=== PATIENT | female | born 1925 | race Caucasian/White ===

== ENCOUNTER 2016-12-13 13:00 | Inpatient (IN) ==
--- NOTE | 2016-12-13 14:02 | XRay Report ---
History is preop respiratory screening Comparison 05/31/2016 Mediastinal and hilar contours are unchanged Minimal patchy and stranding opacities at the left lung base present much of which is felt to be scarring in the confluence of shadows. No confluent right lung infiltrates are seen Chronic rotator cuff tears and degenerative changes in both shoulders present Impression: Minimal left basilar scarring without confluent infiltrates seen PROCEDURE INTERPRETED AT [facility] DEPARTMENT OF RADIOLOGY Final Report Signed by: Dr. Bushra Martinez
--- NOTE | 2016-12-13 14:05 | XRay Report ---
History is fall with pelvic and right hip injury and pain AP pelvis and 2 additional views right hip obtained There is a right femoral neck fracture with mild impaction at the fracture site There is demineralization with mild degenerative changes in both hips Large left pelvic phleboliths present Impression: 1. Right femoral neck fracture 2. Mild demineralization and degenerative changes PROCEDURE INTERPRETED AT [facility] DEPARTMENT OF RADIOLOGY Final Report Signed by: Dr. Bushra Martinez
--- NOTE | 2016-12-13 14:29 | EKG Report ---
Stationary ECG Study [facility] ER Test Date: 12/13/2016 2:27:44 PM Pat Name: LAMAR PERSAUD Department: Room: Gender: F Division Leader: : [id number] Requested by: Efren Luo Order Number: [id number] Reading MD: PIOTR DO Intervals [place] Rate: 77 P: 82 RI: 158 QRS: 79 QRSD: 102 T: 61 QT: 363 QTc: 395 Interpretive Statements SINUS RHYTHM INCOMPLETE RIGHT BUNDLE BRANCH BLOCK Electronically Signed On 12-13-16 16:37:49 CDT by PIOTR DO [email or web address]
[2016-12-13 14:37] LABS: Basophils % 0.4 % (0.0-0.8); Eosinophils # 0.3 10*3/uL (0.0-0.87); Eosinophils % 3.7 % (0.00-10.9); Hematocrit 34.8 VOL% (35.7-47.0); Hemoglobin 12.1 GM/DL (12.0-16.0); Immature Granulocytes % 0.9 %; Immature Granulocytes Absolute 0.07 #; Lymphocytes # 1.4 10*3/uL (1.4-4.0); Lymphocytes % 17.6 % (21.3-54.2); Mean Corpuscular HGB Conc 34.8 GM/DL (32-36); Mean Corpuscular Hemoglobin 29 PG (27-34); Mean Corpuscular Volume 83.5 FL (87-102); Mean Platelet Volume 9.5 FL (9.6-12.0); Monocytes # 0.6 10*3/uL (0.11-0.8); Monocytes % 7.8 % (1.7-12.7); Neutrophils # 5.7 10*3/uL (1.4-7.4); Neutrophils % 69.6 % (38.7-73.9); Platelet Count 251 T/CUMM (130-400); Red Blood Count 4.17 MC/CUMM (3.8-5.5); Red Cell Distribution Width 12.9 % (9.3-17.3); White Blood Count 8.2 T/CUMM (4-12)
--- NOTE | 2016-12-13 14:40 | Emergency Department Note ---
Norris Ghotra Manpreet, am scribing for, and in the presence of, Efren Narvaez MD 13:53. Brice Ghotra Phillip K, MD, personally performed the services described in this documentation, ascribed by Balwinder Pisano in my presence, and it is both accurate and complete [id number] . Arrival - Arrival Chief Complaint: Fall Stated Complaint: fall ED Nursing Triage Note: Brought in per EMS from [facility] s/p fall. Reports tripped over wheel of walker and fell. c/o right hip pain. +pedal pulse. +motor sensory. Mode of Arrival: Stretcher Limitations: No Limitations Source: Patient - History of Present Illness HPI Narrative: Pt is a 89 y/o female who presents to the ED after she was walking into her apartment and getting her foot caught on her walker that resulted in the fall. Pt c/o pain to her right hip but is still able to move it. Pt denies any LOC, wrist pain, or other injuries. No other pains/complaints reported to the ED. Onset (ago): hour(s) Consistency: constant Severity: moderate Severity scale (1-10): 3 Date of Last Menstrual Period: hyst Allergies/Adverse Reactions: Allergies Allergy/AdvReac Type Severity Reaction Status Date / Time cimetidine [From Tagamet] Allergy ANAPHYLAXIS Verified 12/13/16 13:08 Penicillins Allergy ANAPHYLAXIS Verified 12/13/16 13:08 Sulfa (Sulfonamide Allergy RASH Verified 12/13/16 13:08 Antibiotics) Home Medications: Home Medications Medication Instructions Recorded Confirmed Type Aspirin [Ecotrin] 81 mg PO DAILY 02/04/16 12/13/16 History Meclizine [Antivert] 25 mg PO DAILY 02/04/16 12/13/16 History Review of System - Review of System 12 point system: reviewed and no additional remarkable complaints except as stated - Review of System Constitutional: Absent: chills, diaphoresis, fever Respiratory: Absent: cough, respiratory distress, wheezing Cardiovascular: Absent: dyspnea on exertion Gastrointestinal: Absent: abdominal pain, nausea, vomiting Genitourinary female: Absent: dysuria Musculoskeletal: Present: leg pain (Right hip pain). Absent: arm pain, back pain, lower back pain, neck pain, upper back pain Neurological: Absent: headache, weakness, numbness, paresthesias Medical,Surgical,& Family Hx - Medical History Cardio: History of: Hypertension Neurology: History of: Vertigo Rheumatology: History of;: Rheumatoid Arthritis - Surgical History Cardiac Surgeries: Sugical HX of: Cardiac Catheterization (STENT) - Social History Smoking Status: Former smoker Frequency of Alcohol Use: None Type of Drug Use: None Exam Vital Signs: Vital Signs Temperature 98.3 F 12/13/16 13:34 Pulse Rate 80 12/13/16 13:34 Respiratory Rate 16 12/13/16 13:34 Blood Pressure 178/64 12/13/16 13:34 O2 Sat by Pulse Oximetry 98 12/13/16 13:00 - General General appearance: alert, in no apparent distress - Head Head exam: Present: atraumatic, normocephalic, normal inspection - Eye Eye exam: Present: normal appearance, PERRL, EOMI - ENT ENT exam: Present: normal exam, normal oropharynx, mucous membranes moist, TM's normal bilaterally - Neck Neck exam: Present: normal inspection, full ROM, trachea midline. Absent: tenderness, thyromegaly - Chest Chest inspection: Present: normal inspection, symmetric chest wall rise. Absent : tenderness - Respiratory Respiratory exam: Present: normal lung sounds bilaterally. Absent: accessory muscle use, rales, respiratory distress, wheezes - Cardiovascular Cardiovascular exam: Present: regular rate, normal rhythm, normal heart sounds. Absent: murmur, rubs, gallop, clicks - Abdominal Exam Abdominal exam: Present: soft, normal bowel sounds. Absent: distention, tenderness, guarding, rebound - Extremities Exam Extremities exam: Present: tenderness (Tenderness on left hip but no shortening or external rotation ). Absent: normal inspection - Back Exam Back exam: Present: normal inspection, full ROM. Absent: tenderness - Neurological Exam Neurological exam: Present: alert, oriented X3, CN II-XII intact, reflexes normal - Psychiatric Psychiatric exam: Present: normal affect, normal mood - Skin Skin exam: Present: warm, dry, intact, normal color. Absent: pallor Results - Labs CBC & BMP: 12/13/16 14:22 - EKG EKG results: sinus rhythm (Incomplete right bundle branch block) - Diagnostic Findings Procedure: Chest x-ray: report reviewed by me ("Chest X-ray: Minimal left basilar scarring without confluent infiltrates seen."), X-ray: report reviewed by me ("Hip X-ray: 1. Right femoral neck fracture. 2. Mild demineralization and degernative changes.") Disposition Clinical Impression: Fracture of femoral neck, right Case discussed with: patient, patient's family Disposition: Still a Patient Condition: Stable Additional Instructions: Admit to the hospitalist and consult orthopedics.
[2016-12-13 14:53] LABS: PT Patient Result 10.4 SECS
--- NOTE | 2016-12-13 14:55 | Hospitalist History & Physical ---
Addendum entered and electronically signed by Celia Manriquez NP 12/13/16 15:25: 12 point review of systems completed and as per HPI. Addendum entered and electronically signed by Celia Manriquez NP 12/13/16 15:12: Deferred DVT prophylaxis to Orthopedics Original Note: Assessment and Plan - Time spent with patient Time spent with patient: Greater than 30 minutes (1) Fracture of femoral neck, right Status: Acute Assessment and plan: Admit to Surgical Floor. Consult Orthopedics. Start IV fluids. Hurd catheter placement. Will repeat a.m. labs. Will discuss with Dr David for further recommendations. Current Visit: Yes History of Present Illness Chief complaint: fall/tripped over walker; right femoral neck fracture History of present illness: Ms. Ramos is a 89 year old white female with PMHx: hypertension, Vertigo, Rheumatoid arthritis; presented to the ED Via EMS from [facility] after tripping over wheel of walker. She complains of right hip pain. She denies, shortness of breath, dizziness, chest pain, LOC or pain in wrist, arm, shoulder. IN ED: LABS: H&H 12.1 & 34.8; Plt 251; Hip Xray right: right femoral neck fracture; mild demineralization and degenerative changes. CXR: minimal left basilar scarring without confluent infiltrates seen. Patient denies alcohol use. She quit smoking in 2004 after 54 years of smoking. 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 After discussion with Dr Narvaez in the ED and Dr David with Hospitalist Medicine, it was agreed to admit patient further evaluation and treatment. Home medications to be reviewed and reconciliation to follow. Home Medications Medication Instructions Recorded Confirmed Type Aspirin [Ecotrin] 81 mg PO DAILY 02/04/16 12/13/16 History Meclizine [Antivert] 25 mg PO DAILY 02/04/16 12/13/16 History Allergies Allergy/AdvReac Type Severity Reaction Status Date / Time cimetidine [From Tagamet] Allergy ANAPHYLAXIS Verified 12/13/16 13:08 Penicillins Allergy ANAPHYLAXIS Verified 12/13/16 13:08 Sulfa (Sulfonamide Allergy RASH Verified 12/13/16 13:08 Antibiotics) Medical,Surgical,& Family Hx - Medical History Cardio: History of: Hypertension Neurology: History of: Vertigo Rheumatology: History of;: Rheumatoid Arthritis - Surgical History Cardiac Surgeries: Sugical HX of: Cardiac Catheterization (STENT) Abdominal Surgeries: Surgical HX of: Appendectomy (when she was young) - Social History Smoking Status: Former smoker (quit in 2004 after 54 years ago) Frequency of Alcohol Use: None Type of Drug Use: None Lives With:: [facility] Functional capacity: uses cane/walker Review of systems: ROS completed and pertinent positives and negatives in the HPI. Exam - Constitutional Vitals: Period Temp Pulse Resp BP Sys/Mora Pulse Ox Last 24 Hr 98.3 F-98.3 F 80-80 16-16 178-178/64-64 98 General appearance: normal weight - Head Head exam: Present: normal inspection - Eye Eye exam: Present: EOMI Pupils: Present: SHAWN - Neck Neck exam: Present: normal inspection. Absent: thyromegaly - Respiratory Respiratory exam: Present: clear to auscultation bilaterally. Absent: rhonchi, stridor, wheezes - Cardiovascular Cardiovascular exam: Present: regular rate and rhythm - GI/Abdominal GI/Abdominal exam: Present: normal bowel sounds, soft. Absent: tenderness, rebound - Extremities Exam Extremities exam: Present: other (No shortening noted; no rotation noted; easily palpable pedal pulses bilaterally ). Absent: edema - Neurological Exam Neurological exam: Present: alert, oriented X3 - Psychiatric Psychiatric exam: Present: normal affect, normal mood. Absent: agitated, anxious - Skin Skin exam: Present: normal color, warm, dry Results - Labs CBC & BMP: 12/13/16 14:22 Lab Results: I have reviewed the past 24 hour labs - Diagnostic Findings Procedure: X-ray: report reviewed by me (Right Hip: Right femoral neck fracture , mild demineralization and degenerative changes)
[2016-12-13 15:03] LABS: Calcium 9.2 MG/DL (8.5-10.1); Potassium 4.6 MMOL/L (3.5-5.1)
[2016-12-13] MEDS ORDERED: ACETAMINOPHEN 325 MG TABLET PO PRN (15:04)
[2016-12-13] MEDS ORDERED: ONDANSETRON 4 MG/2 ML VIAL IV PRN (15:04)
[2016-12-13] MEDS ORDERED: MORPHINE 2 MG/1 ML SYRINGE IV PRN ×2 (15:04→17:41)
[2016-12-13] MEDS ORDERED: SODIUM CHLORIDE 0.9% 1,000 ML IV SCH (15:30)
--- NOTE | 2016-12-13 18:23 | Orthopedic Consult Note ---
History of Present Illness Chief complaint: Right hip pain History of present illness: Ms. Ramos is a 89 year old female who fell when coming back from getting her hair done. She tripped over the wheel of her walker. The patient lives alone at [facility]. Her daughter is present today. She denies any other injury elsewhere and denies any antecedent pain from the right hip. She has been using a walker since May of this year. She had a series of 4 falls and head injury. She denies any numbness or tingling. Home Medications Medication Instructions Recorded Confirmed Type Aspirin [Ecotrin] 81 mg PO DAILY 02/04/16 12/13/16 History Meclizine [Antivert] 25 mg PO DAILY 02/04/16 12/13/16 History Allergies Allergy/AdvReac Type Severity Reaction Status Date / Time cimetidine [From Tagamet] Allergy ANAPHYLAXIS Verified 12/13/16 13:08 Penicillins Allergy ANAPHYLAXIS Verified 12/13/16 13:08 Sulfa (Sulfonamide Allergy RASH Verified 12/13/16 13:08 Antibiotics) 12 point system: reviewed and no additional remarkable complaints except as stated Medical,Surgical,& Family Hx - Medical History Cardio: History of: Hypertension Neurology: History of: Vertigo Rheumatology: History of;: Rheumatoid Arthritis - Surgical History Cardiac Surgeries: Sugical HX of: Cardiac Catheterization (STENT) Abdominal Surgeries: Surgical HX of: Appendectomy (when she was young) - Social History Smoking Status: Former smoker Frequency of Alcohol Use: None Type of Drug Use: None Exam - Constitutional Vitals: Period Temp Pulse Resp BP Sys/Mora Pulse Ox Last 24 Hr 98.3 F-98.3 F 76-80 16-20 113-182/51-89 95-98 Alert and oriented. She is complaining of pain from her right hip. Exam shows spine, bilateral upper extremities and left lower extremity are nontender without acute deformity. Right lower extremity shows no gross deformity. Skin, sensation motors pulses are intact to her foot and ankle. She has severe pain with gentle motion of her hip. Radiographs pelvis and right hip shows that she has a valgus impacted femoral neck fracture with significant apex anterior angulation. Impression: Right valgus impacted femoral neck fracture with significant apex anterior angulation Plan: I discussed at length with the patient and her family regarding the nature of her hip fracture. I have advised a hemiarthroplasty over pinning given the significant angulation on her lateral x-ray. I discussed the risks and benefits and all questions were answered. Anticipate discharge to [facility]. Results - Labs CBC & BMP: 12/13/16 14:22 12/13/16 14:22 Assessment and Plan (1) Fracture of femoral neck, right Status: Acute Current Visit: Yes Qualifiers: Encounter type: initial encounter Fracture type: closed Qualified Code(s) : S72.001A - Fracture of unspecified part of neck of right femur, initial encounter for closed fracture
[2016-12-13] MEDS: MECLIZINE 25 MG TABLET PO SCH (21:34)
[2016-12-13] MEDS: DOCUSATE SODIUM 100 MG CAPSULE PO SCH (21:34)
[2016-12-13] MEDS: SODIUM CHLORIDE 0.45% 1,000 ML IV SCH ×2 (21:35→21:39)
[2016-12-14] MEDS ORDERED: CLINDAMYCIN INJ 900 MG in PREMIX 1 EACH IV ONE (06:00)
[2016-12-14] MEDS ORDERED: VANCOMYCIN INJ 1,000 MG in SODIUM CHLORIDE 0.9% 250 ML IV ONE (06:00)
[2016-12-14] MEDS: SODIUM CHLORIDE 0.45% 1,000 ML IV SCH (06:16)
--- NOTE | 2016-12-14 07:00 | Orthopedic Progress Note ---
Assessment and Plan (1) Fracture of femoral neck, right Status: Acute Current Visit: Yes Qualifiers: Encounter type: initial encounter Fracture type: closed Qualified Code(s) : S72.001A - Fracture of unspecified part of neck of right femur, initial encounter for closed fracture Orthopedics - Subjective Interval history: Ms. Ramos was seen this morning in the proper room. She had a relatively good night and was able to sleep. Exam right lower extremity is unchanged. Impression right femoral neck fracture Plan: We will plan proceeding with a right hip hemiarthroplasty this morning. All questions were answered. Exam - Constitutional Vitals: Period Temp Pulse Resp BP Sys/Mora Pulse Ox Last 24 Hr 98.0 F-98.4 F 75-90 16-20 113-182/51-89 90-98 Results - Labs CBC & BMP: 12/13/16 14:22 12/13/16 14:22
[2016-12-14] MEDS ORDERED: MAGNESIUM HYDROXIDE SUSP 30 ML UDCUP PO PRN (07:55)
[2016-12-14] MEDS ORDERED: TRANEXAMIC ACID 1,000 MG/10 ML VIAL IV ONE (08:05)
[2016-12-14] MEDS ORDERED: MECLIZINE 25 MG TABLET PO SCH (09:00)
[2016-12-14] MEDS ORDERED: ASPIRIN EC 81 MG TABLET PO SCH (09:00)
--- NOTE | 2016-12-14 09:19 | Anesthesia Post-Op ---
Anesthesia Post OP - Post Ansesthetic Evaluation Patient seen in post op: Yes Resp: within normal limits CV: within normal limits Mental: within normal limits Temp: within normal limits [id number]: within normal limits Nausea and Vomiting: within normal limits Pain: within normal limits
[2016-12-14] MEDS ORDERED: SEVOFLURANE 1 UNIT/15 MINUTE INH ONE (09:22)
[2016-12-14] MEDS ORDERED: fentaNYL 100 MCG/2 ML VIAL ONE (09:22)
[2016-12-14] MEDS ORDERED: LACTATED RINGERS 1,000 ML IV ONE (09:22)
[2016-12-14] MEDS ORDERED: ACETAMINOPHEN 1,000 MG/100 ML VIAL IV ONE (09:22)
--- NOTE | 2016-12-14 09:38 | Operative Note ---
Date of procedure: 12/14/16 Procedure: DIAGNOSIS: Right displaced femoral neck fracture PROCEDURE: Right cemented hip hemiarthroplasty (CPT # 58380) SURGEON: Ramon ANESTHESIA: Spinal PROCEDURE and FINDINGS: After adequate anesthesia was induced, her operative hip was prepped and draped in usual sterile sterile fashion in the lateral decubitus position. Posterior lateral approach was made. Skin and subcutaneous tissue and deep fascia was incised. The gluteus misti muscle belly was split in line with its fibers. Piriformis, capsule and external rotators were taken down in a single layer for future repair. Templated femoral neck cut was made. Femoral head was removed from the acetabulum. Acetabulum was sized to 47 mm. Femur was prepared with the box osteotome, canal finder and sequential broaches to size 13. Components were trialed. Femoral stem was implanted with modern cementing techniques. Palacos cement, a distal centralizer and cement plug were used. Excess cement was removed. A size 12 LD/ FX Versys stem was used. The femoral head was re-trialed and the final head was selected. A 47 mm endohead with a 28 +0 neck length was used. Capsule and external rotators were repaired to the greater trochanter with #5 Tycron. Fascia was repaired with 0 Vicryl [id number] sutures. Deep subcutaneous tissue was closed with a 2-0 Vicryl running suture. Superficial subcutaneous tissues were approximated with interrupted 3-0 Vicryl sutures. Melissa were used to approximate skin. Bacitracin and a sterile dressing were applied. EBL: 20 cc Surgeon / Physician: Herb Navarro Jr. Results - Labs CBC & BMP: 12/13/16 14:22 12/13/16 14:22 Discharge Plan - Discharge Medications No Action Meclizine [Antivert] 25 mg PO DAILY Aspirin [Ecotrin] 81 mg PO DAILY - Follow Up or Referral - Forms/Instructions
[2016-12-14 10:27] LABS: Basophils % 0.2 % (0.0-0.8); Eosinophils # 0.4 10*3/uL (0.0-0.87); Eosinophils % 2.9 % (0.00-10.9); Hematocrit 34.2 VOL% (35.7-47.0); Hemoglobin 11.5 GM/DL (12.0-16.0); Immature Granulocytes % 0.6 %; Immature Granulocytes Absolute 0.08 #; Lymphocytes # 0.9 10*3/uL (1.4-4.0); Lymphocytes % 6.6 % (21.3-54.2); Mean Corpuscular HGB Conc 33.6 GM/DL (32-36); Mean Corpuscular Hemoglobin 29 PG (27-34); Mean Corpuscular Volume 84.9 FL (87-102); Mean Platelet Volume 9.3 FL (9.6-12.0); Monocytes # 0.5 10*3/uL (0.11-0.8); Neutrophils # 11.5 10*3/uL (1.4-7.4); Neutrophils % 85.7 % (38.7-73.9); Platelet Count 207 T/CUMM (130-400); Red Blood Count 4.03 MC/CUMM (3.8-5.5); White Blood Count 13.4 T/CUMM (4-12)
[2016-12-14] MEDS: DOCUSATE SODIUM 100 MG CAPSULE PO SCH ×2 (11:02→20:47)
[2016-12-14] MEDS: PANTOPRAZOLE 40 MG TABLET PO SCH (11:02)
[2016-12-14] MEDS: MECLIZINE 25 MG TABLET PO SCH ×3 (11:02→20:47)
[2016-12-14] MEDS: KETOROLAC 15 MG/1 ML VIAL IV SCH ×3 (11:03→20:47)
[2016-12-14] MEDS: LACTATED RINGERS 1,000 ML IV SCH ×3 (11:03→22:55)
[2016-12-14 11:05] LABS: Calcium 8.5 MG/DL (8.5-10.1); Magnesium 2.4 MG/DL (1.8-2.4); Osmolality,Calculated 271.4 MOS/KG (273-304); Potassium 4.6 MMOL/L (3.5-5.1)
--- NOTE | 2016-12-14 12:03 | XRay Report ---
History is postop right hip surgery There has been right hip replacement with overlying soft tissue jamal and gas present. There is a fairly horizontal configuration of the acetabular component. no discrete fracture lines are identified Impression: Status post right hip replacement PROCEDURE INTERPRETED AT [facility] DEPARTMENT OF RADIOLOGY Final Report Signed by: Dr. Bushra Martinez
[2016-12-14] MEDS: ACETAMINOPHEN 500 MG TABLET PO SCH ×2 (12:13→17:50)
--- NOTE | 2016-12-14 12:46 | Orthopedic Progress Note ---
Assessment and Plan (1) Fracture of femoral neck, right Status: Acute Current Visit: Yes Qualifiers: Encounter type: initial encounter Fracture type: closed Qualified Code(s) : S72.001A - Fracture of unspecified part of neck of right femur, initial encounter for closed fracture Orthopedics - Subjective Interval history: Comfortable post op. Dressing dry. NV unchanged. Continue per protocol. Exam - Constitutional Vitals: Period Temp Pulse Resp BP Sys/Mora Pulse Ox Last 24 Hr 97.2 F-98.4 F 71-90 16-20 113-182/51-89 90-98 Results - Labs CBC & BMP: 12/14/16 10:17 12/14/16 10:17
--- NOTE | 2016-12-14 13:48 | Hospitalist Progress Note ---
Assessment and Plan (1) Fracture of femoral neck, right Status: Acute Assessment and plan: Impression: 1. Hip fracture Plan: Continue PT postop. Rehab transfer when cleared by orthopedics. This note was completed using [employer] voice recognition software. There may be small business director errors as a result. Current Visit: Yes Qualifiers: Encounter type: initial encounter Fracture type: closed Qualified Code(s) : S72.001A - Fracture of unspecified part of neck of right femur, initial encounter for closed fracture Hospitalist: Subjective Interval history: Follow-up hip fracture. The patient underwent an uneventful repair of her hip fracture. She does not really have much in the way of any medical problems, and denies any hypertension or diabetes. She reports some memory problems, but not much else. She says that she tripped over her walker. She is immediately postop, and her pain is controlled with Tylenol. She has eaten all of her lunch. Exam - Constitutional Vitals: Period Temp Pulse Resp BP Sys/Mora Pulse Ox Last 24 Hr 97.2 F-98.4 F 69-90 16-20 113-182/51-89 90-99 Vital signs are noted above. Heart is regular with no murmur or gallop. Lungs are clear with no rales or wheezes. She is awake and conversant. Results - Labs CBC & BMP: 12/14/16 10:17 12/14/16 10:17 Lab Results: I have reviewed the past 24 hour labs (Creatinine is slightly elevated, but trending down.)
[2016-12-14] MEDS: CLINDAMYCIN INJ 900 MG in PREMIX 1 EACH IV SCH ×2 (15:10→22:51)
[2016-12-15] MEDS: ACETAMINOPHEN 500 MG TABLET PO SCH ×2 (00:40→05:27)
[2016-12-15] MEDS: KETOROLAC 15 MG/1 ML VIAL IV SCH (03:50)
[2016-12-15] MEDS: LACTATED RINGERS 1,000 ML IV SCH ×2 (04:08→13:46)
[2016-12-15 05:20] LABS: Basophils % 0.2 % (0.0-0.8); Eosinophils # 0.2 10*3/uL (0.0-0.87); Eosinophils % 1.2 % (0.00-10.9); Hematocrit 29.9 VOL% (35.7-47.0); Hemoglobin 10.3 GM/DL (12.0-16.0); Immature Granulocytes % 0.5 %; Immature Granulocytes Absolute 0.07 #; Lymphocytes # 1.2 10*3/uL (1.4-4.0); Mean Corpuscular HGB Conc 34.4 GM/DL (32-36); Mean Corpuscular Hemoglobin 29 PG (27-34); Mean Corpuscular Volume 82.8 FL (87-102); Mean Platelet Volume 10.3 FL (9.6-12.0); Monocytes # 0.9 10*3/uL (0.11-0.8); Monocytes % 6.6 % (1.7-12.7); Neutrophils # 10.8 10*3/uL (1.4-7.4); Neutrophils % 82.5 % (38.7-73.9); Platelet Count 209 T/CUMM (130-400); Red Blood Count 3.61 MC/CUMM (3.8-5.5); Red Cell Distribution Width 12.8 % (9.3-17.3); White Blood Count 13.1 T/CUMM (4-12)
[2016-12-15 05:33] LABS: Calcium 8.5 MG/DL (8.5-10.1); Osmolality,Calculated 265.7 MOS/KG (273-304); Potassium 4.1 MMOL/L (3.5-5.1)
[2016-12-15] MEDS: PANTOPRAZOLE 40 MG TABLET PO SCH (09:22)
[2016-12-15] MEDS: MECLIZINE 25 MG TABLET PO SCH ×3 (09:22→20:46)
[2016-12-15] MEDS: DOCUSATE SODIUM 100 MG CAPSULE PO SCH ×2 (09:22→20:46)
[2016-12-15] MEDS ORDERED: BISACODYL 10 MG SUPP RECTAL PRN ×2 (09:59)
--- NOTE | 2016-12-15 10:07 | Orthopedic Progress Note ---
Orthopedics - Subjective Interval history: This is Postop Day 1 from cemented prosthetic hemiarthroplasty right hip for femoral neck fracture. She is alert, oriented, and in no significant pain. Current hct is 29.9. Plan: Continue current protocol without change Exam - Constitutional Vitals: Period Temp Pulse Resp BP Sys/Mora Pulse Ox Last 24 Hr 96.0 F-98.1 F 69-85 16-22 129-165/57-83 90-99 Results - Labs CBC & BMP: 12/15/16 03:18 12/15/16 03:18
--- NOTE | 2016-12-15 17:59 | Hospitalist Progress Note ---
Hospitalist: Subjective Interval history: 89-year-old female who is postop for a right hip fracture. Her pain is controlled. Exam - Constitutional Vitals: Period Temp Pulse Resp BP Sys/Mora Pulse Ox Last 24 Hr 97.0 F-98.6 F 72-85 16-22 132-165/57-92 90-98 Exam: General: No Acute Distress HEENT: Normocephalic, atraumatic, Extra ocular movements intact Neck: Supple, No JVD Chest: Clear to auscultation B/L CV: S1 + S2 audible without murmur, gallop or rub Abd: soft, NT, Non-distended, BS + Ext: No edema Skin: No purpura, bruising or rash Rheumatologic: No Joint deformities Neurologic: Strength 5/5 all extremities, no gross sensory deficits Results - Labs CBC & BMP: 12/15/16 03:18 12/15/16 03:18 - Impressions Assessment and Plan (1) Fracture of femoral neck, right Status: Acute Assessment and plan: Patient is doing well postop. Patient is getting physical therapy. She is likely going to swing bed or rehab next week
[2016-12-16] MEDS: LACTATED RINGERS 1,000 ML IV SCH ×4 (00:55→21:19)
[2016-12-16] MEDS: oxyCODONE IR 5 MG TABLET PO PRN ×2 (01:48→21:19)
[2016-12-16 04:48] LABS: Basophils % 0.1 % (0.0-0.8); Eosinophils # 0.5 10*3/uL (0.0-0.87); Eosinophils % 3.3 % (0.00-10.9); Hematocrit 28.3 VOL% (35.7-47.0); Hemoglobin 9.7 GM/DL (12.0-16.0); Immature Granulocytes % 0.6 %; Immature Granulocytes Absolute 0.09 #; Lymphocytes # 0.7 10*3/uL (1.4-4.0); Mean Corpuscular HGB Conc 34.3 GM/DL (32-36); Mean Corpuscular Hemoglobin 29 PG (27-34); Mean Corpuscular Volume 83.2 FL (87-102); Mean Platelet Volume 10.5 FL (9.6-12.0); Monocytes # 0.8 10*3/uL (0.11-0.8); Monocytes % 5.8 % (1.7-12.7); Neutrophils % 85.2 % (38.7-73.9); Platelet Count 199 T/CUMM (130-400); Red Cell Distribution Width 12.9 % (9.3-17.3); White Blood Count 14.1 T/CUMM (4-12)
[2016-12-16] MEDS: MECLIZINE 25 MG TABLET PO SCH ×3 (09:19→21:19)
[2016-12-16] MEDS: PANTOPRAZOLE 40 MG TABLET PO SCH (09:20)
[2016-12-16] MEDS: DOCUSATE SODIUM 100 MG CAPSULE PO SCH ×2 (09:23→21:26)
--- NOTE | 2016-12-16 09:34 | Orthopedic Progress Note ---
Orthopedics - Subjective Interval history: She is alert, oriented, stable. Dressing clean and dry. No pain. Rec: Continue orthopaedic protocol. Exam - Constitutional Vitals: Period Temp Pulse Resp BP Sys/Mora Pulse Ox Last 24 Hr 97.1 F-99.6 F 73-93 16-22 135-158/54-92 95-98 Results - Labs CBC & BMP: 12/16/16 03:26 12/15/16 03:18
--- NOTE | 2016-12-16 14:12 | Hospitalist Progress Note ---
Hospitalist: Subjective Interval history: 89-year-old female who is postop for a right hip fracture. Her pain is controlled. Exam - Constitutional Vitals: Period Temp Pulse Resp BP Sys/Mora Pulse Ox Last 24 Hr 97.1 F-99.7 F 73-93 16-21 135-158/54-83 95-98 Exam: General: No Acute Distress HEENT: Normocephalic, atraumatic, Extra ocular movements intact Neck: Supple, No JVD Chest: Clear to auscultation B/L CV: S1 + S2 audible without murmur, gallop or rub Abd: soft, NT, Non-distended, BS + Ext: No edema Skin: No purpura, bruising or rash Rheumatologic: No Joint deformities Neurologic: Strength 5/5 all extremities, no gross sensory deficits Results - Labs CBC & BMP: 12/16/16 03:26 12/15/16 03:18 - Impressions Assessment and Plan (1) Fracture of femoral neck, right Status: Acute Assessment and plan: Patient is doing well postop. Patient is getting physical therapy. She is likely going to swing bed or rehab next week
--- NOTE | 2016-12-16 14:12 | XRay Report ---
Exam: XR chest 1V portable Date: 12/16/2016 9:32 AM Indication: Wheezing Comparison: 12/13/2016 Technical: AP Findings: Lateral marginal osteophytes are present. Heart is normal in size. Minimal interstitial edema suspected and tiny effusions. ASVD is present. No pneumothorax. Mediastinum is intact. Impression: 1. Mild interstitial edema could represent a component of minimal congestive failure with tiny effusions. PROCEDURE INTERPRETED AT [facility] DEPARTMENT OF RADIOLOGY Final Report Signed by: Dr. Harish Kuhn
--- NOTE | 2016-12-16 14:13 | XRay Report ---
Exam: XR shoulder 2V RT Date: 12/16/2016 9:31 AM Indication: Pain Comparison: None Technical: Internal and external AP view Findings: Mild degenerative arthritic changes AC joint. The humeral head is intact. Scapula and adjacent ribs are intact. Impression: Mild degenerative arthritic changes AC joint without fracture dislocation. PROCEDURE INTERPRETED AT [facility] DEPARTMENT OF RADIOLOGY Final Report Signed by: Dr. Harish Kuhn
[2016-12-17 05:55] LABS: Basophils % 0.2 % (0.0-0.8); Eosinophils # 0.9 10*3/uL (0.0-0.87); Eosinophils % 8.5 % (0.00-10.9); Hematocrit 28.2 VOL% (35.7-47.0); Hemoglobin 9.2 GM/DL (12.0-16.0); Immature Granulocytes % 0.9 %; Immature Granulocytes Absolute 0.09 #; Lymphocytes # 1.2 10*3/uL (1.4-4.0); Lymphocytes % 11.7 % (21.3-54.2); Mean Corpuscular HGB Conc 32.6 GM/DL (32-36); Mean Corpuscular Hemoglobin 28 PG (27-34); Mean Corpuscular Volume 86.2 FL (87-102); Mean Platelet Volume 10.3 FL (9.6-12.0); Monocytes # 0.9 10*3/uL (0.11-0.8); Monocytes % 8.4 % (1.7-12.7); Neutrophils # 7.4 10*3/uL (1.4-7.4); Neutrophils % 70.3 % (38.7-73.9); Platelet Count 194 T/CUMM (130-400); Red Blood Count 3.27 MC/CUMM (3.8-5.5); Red Cell Distribution Width 13.2 % (9.3-17.3); White Blood Count 10.6 T/CUMM (4-12)
[2016-12-17 06:34] LABS: Band Neutrophils 1 % (0-10); Eosinophils 6 % (0-10); Hypochromasia 1+; Lymphocytes 11 % (20-55); Platelet Estimate Adequate; Segmented Neutrophils 80 % (50-85); Total Cells Counted 100
[2016-12-17 06:35] LABS: Giant Platelets Few; Microcytosis Slight; Ovalocytes Slight
[2016-12-17] MEDS: LACTATED RINGERS 1,000 ML IV SCH (07:19)
--- NOTE | 2016-12-17 07:20 | Orthopedic Progress Note ---
Assessment and Plan (1) Fracture of femoral neck, right Status: Acute Current Visit: Yes Qualifiers: Encounter type: initial encounter Fracture type: closed Qualified Code(s) : S72.001A - Fracture of unspecified part of neck of right femur, initial encounter for closed fracture Orthopedics - Subjective Interval history: Ms. Ramos is comfortable. She has been confused, but seems to be better now that she slept yesterday and last night. She was able to get to chair yesterday. Dressing clean, dry and intact. Right lower extremities neurovascularly unchanged. Plan: Continue with physical therapy. Posterior hip precautions for 3 months. Daily dry dressing changes. Arrange for walker and bedside commode for home use. Wear LESLY hose for 1 month. Follow-up appointment in 4 weeks. Discontinue jamal and Steri-Strip wound on December 26, 2016. Prescription for [place] 5 with 20 tablets was written. Arixtra for DVT prophylaxis. Stop Arixtra when discharged from swing bed. Resume aspirin when Arixtra discontinued.. Exam - Constitutional Vitals: Period Temp Pulse Resp BP Sys/Mora Pulse Ox Last 24 Hr 97.8 F-99.7 F 73-81 16-21 139-152/54-81 94-97 Results - Labs CBC & BMP: 12/17/16 04:41 12/15/16 03:18
[2016-12-17] MEDS: DOCUSATE SODIUM 100 MG CAPSULE PO SCH ×2 (08:51→21:03)
[2016-12-17] MEDS: MECLIZINE 25 MG TABLET PO SCH ×3 (08:51→21:03)
[2016-12-17] MEDS: PANTOPRAZOLE 40 MG TABLET PO SCH (08:51)
[2016-12-17] MEDS ORDERED: FONDAPARINUX 2.5 MG/0.5 ML SYRINGE SUBCUT SCH (14:30)
--- NOTE | 2016-12-17 16:21 | Hospitalist Progress Note ---
Hospitalist: Subjective Interval history: 89-year-old female who is postop for a right hip fracture. Her pain is controlled. Exam - Constitutional Vitals: Period Temp Pulse Resp BP Sys/Mora Pulse Ox Last 24 Hr 97.4 F-98.1 F 73-81 16-20 148-185/66-81 94-97 Exam: General: No Acute Distress HEENT: Normocephalic, atraumatic, Extra ocular movements intact Neck: Supple, No JVD Chest: Clear to auscultation B/L CV: S1 + S2 audible without murmur, gallop or rub Abd: soft, NT, Non-distended, BS + Ext: No edema Skin: No purpura, bruising or rash Rheumatologic: No Joint deformities Neurologic: Strength 5/5 all extremities, no gross sensory deficits Results - Labs CBC & BMP: 12/17/16 04:41 12/15/16 03:18 - Impressions - Impressions Assessment and Plan (1) Fracture of femoral neck, right Status: Acute Assessment and plan: Patient is doing well postop. Patient is getting physical therapy. She is likely going to swing bed or rehab on Saturday Specialty Discharge - Follow Up or Referrals Follow up with: Herb Navarro Jr., MD [Physician] - 01/15/17 8:50 am
[2016-12-18 05:19] LABS: Basophils % 0.2 % (0.0-0.8); Eosinophils # 0.9 10*3/uL (0.0-0.87); Eosinophils % 7.5 % (0.00-10.9); Hematocrit 25.5 VOL% (35.7-47.0); Hemoglobin 8.7 GM/DL (12.0-16.0); Immature Granulocytes % 1.1 %; Immature Granulocytes Absolute 0.14 #; Lymphocytes # 1.3 10*3/uL (1.4-4.0); Lymphocytes % 10.4 % (21.3-54.2); Mean Corpuscular HGB Conc 34.1 GM/DL (32-36); Mean Corpuscular Hemoglobin 29 PG (27-34); Mean Platelet Volume 9.9 FL (9.6-12.0); Neutrophils # 9.1 10*3/uL (1.4-7.4); Neutrophils % 72.8 % (38.7-73.9); Platelet Count 215 T/CUMM (130-400); Red Cell Distribution Width 13.2 % (9.3-17.3); White Blood Count 12.4 T/CUMM (4-12)
[2016-12-18 05:47] LABS: Band Neutrophils 1 % (0-10); Eosinophils 11 % (0-10); Giant Platelets Few; Hypochromasia 1+; Lymphocytes 10 % (20-55); Ovalocytes Slight; Platelet Estimate Adequate; Segmented Neutrophils 74 % (50-85); Total Cells Counted 100
[2016-12-18 05:48] LABS: Microcytosis Slight
[2016-12-18 05:56] LABS: Calcium 8.2 MG/DL (8.5-10.1); Osmolality,Calculated 274.1 MOS/KG (273-304); Potassium 4.2 MMOL/L (3.5-5.1)
--- NOTE | 2016-12-18 07:35 | Orthopedic Progress Note ---
Assessment and Plan (1) Fracture of femoral neck, right Status: Acute Current Visit: Yes Qualifiers: Encounter type: initial encounter Fracture type: closed Qualified Code(s) : S72.001A - Fracture of unspecified part of neck of right femur, initial encounter for closed fracture Orthopedics - Subjective Interval history: Ms. Ramos did well yesterday. She was able to take 2 steps into the araya. Her dressing is clean, dry and intact. Right lower extremities neurovascularly unchanged. Hemoglobin is 8.7 Plan: Continue physical therapy. To swing bed when bed available. Exam - Constitutional Vitals: Period Temp Pulse Resp BP Sys/Mora Pulse Ox Last 24 Hr 97.4 F-99.0 F 75-85 18-20 140-185/59-79 92-97 Results - Labs CBC & BMP: 12/18/16 04:52 12/18/16 04:52 Specialty Discharge - Follow Up or Referrals Follow up with: Herb Navarro Jr., MD [Physician] - 01/15/17 8:50 am
[2016-12-18] MEDS: PANTOPRAZOLE 40 MG TABLET PO SCH (08:23)
[2016-12-18] MEDS: MECLIZINE 25 MG TABLET PO SCH (08:23)
[2016-12-18] MEDS: DOCUSATE SODIUM 100 MG CAPSULE PO SCH (08:24)
--- NOTE | 2016-12-18 08:55 | Discharge Summary ---
<Angus Suarez - Last Filed: 12/18/16 08:36> Hospital Course - Hospital Course Hospital Course: Ms. Ramos is a 89-year-old female patient with a history of hypertension, vertigo, and rheumatoid presented to the ED on 12/13 evaluation after a fall. Patient was returning home and walking into her apartment when her foot caught on her walker and she fell. Patient complained of pain to the right hip but was able to move it. After arrival to the ED via EMS, a right hip xray revealed a right femoral neck fracture. Pt. was admitted to the hospitalist service for further evaluation and treatment. Ortho evaluated the patient and she underwent a right hemiarthroplasty. Pt. tolerated the procedure well with no complications. Pt. worked out with physical therapy during her stay for strength rebuilding and reconditioning. Pain has been adequately controlled. Vitals signs are stable. Pt. is ok to be discharged to swingbed facility today. She is awaiting insurance approval for bed at [facility]. She was seen and examined today with her [id number] at the bedside. She denies any complaints. She has reached maximal benefit from this inpatient hospitalization and is ready for discharge. Home medications were reviewed and reconciled. The patient is a full code. Specialty Discharge - Follow Up or Referrals Follow up with: Herb Navarro Jr., MD [Physician] - 01/15/17 8:50 am Discharge Plan - Discharge Data Disposition: Swing Bed, [facility], [facility] - Discharge Medications New Docusate Sodium Cap [Colace Cap] 100 mg PO BID capsule HYDROcodone/ACETAMIN 5-325 [[place] 5-325] 1 tablet PO Q4H PRN #30 tablet PRN Reason: Pain Mild (1-3) Fondaparinux [Arixtra] 2.5 mg SUBCUT Q24H #20 syringe Continue Meclizine [Antivert] 25 mg PO DAILY Aspirin [Ecotrin] 81 mg PO DAILY - Follow Up or Referral Follow Up: Herb Navarro Jr., MD [Physician] - 01/15/17 8:50 am - Forms/Instructions Exam - Constitutional Vitals: Period Temp Pulse Resp BP Sys/Mroa Pulse Ox Last 24 Hr 97.0 F-99.0 F 75-85 18-19 140-163/59-75 92-97 Discharge Results Labs on day of discharge: Labs from last 24 hours 12/18/16 12/18/16 04:52 04:52 WBC 12.4 H RBC 3.00 L Hgb 8.7 L Hct 25.5 L MCV 85.0 L MCH 29 MCHC 34.1 RDW 13.2 Plt Count 215 MPV 9.9 Neut % (Auto) 72.8 Lymph % (Auto) 10.4 L Mcdonough % (Auto) 8.0 Eos % (Auto) 7.5 Baso % (Auto) 0.2 Neut # (Auto) 9.1 H Lymph # (Auto) 1.3 L Mcdonough # (Auto) 1.0 H Eos # (Auto) 0.9 H Baso # (Auto) 0.0 Total Counted 100 Immature Gran % 1.1 Nucleated RBC % 0.0 Immature Gran # 0.14 Segmented Neutrophils 74 Band Neutrophils 1 Lymphocytes 10 L Monocytes 4 Eosinophils 11 H Nucleated RBCs # 0.00 Platelet Estimate Adequate Giant Platelets Few Immature Plt Fraction 0.0 Hypochromasia 1+ Microcytosis Slight Ovalocytes Slight Sodium 135 L Potassium 4.2 Chloride 101 Carbon Dioxide 31 Anion Gap 7.2 BUN 23 H Creatinine 1.20 H GFR Calculation 40 BUN/Creatinine Ratio 19.00 Glucose 111 H Calculated Osmolality 274.1 Calcium 8.2 L DS: Provider Date of admission: 12/13/16 14:26 Primary care physician: Young Chao MD Attending physician on admission: Susan David MD Consults: 12/13/16 14:38 Consult to Physician [CONS] Routine Comment: right femoral neck fracture Consulting Provider: Herb Navarro Jr. Consulting Provider Notified: Yes When should Consulting Provider be notified: Now Person Notified: codi [email or web address] Date Notified: 12/13/16 Time Notified: 16:13 Consult Notification Comment: XR: right femoral neck fracture with mild impaction at the fracture site 12/13/16 15:07 Consult to Case Mgmt/Social Srvs [CONS] Routine Reason for Case Mgmt/Social Srvs: Discharge Planning Consult to Occupational Therapy [CONS] Routine Reason for Occupational Therapy: Evaluate and Treat Consult to Physical Therapy [CONS] Routine Reason for Physical Therapy: Evaluate and Treat Start Therapy: Today Consult Comment: hip precautions, wbat 12/14/16 07:56 Consult to Case Mgmt/Social Srvs [CONS] Routine Reason for Case Mgmt/Social Srvs: Rehab Home Health Equipment Consult Comment: Bedside Commode, CPM, Walker Discharging clinician: Angus Suarez NP <Lyn Loya - Last Filed: 12/18/16 09:52> Hospital Course - Time spent with patient Time with patient DS: Greater than 30 minutes (Total discharge time for this patient, including [id number] time, clinical documentation, medication reconciliation, and discharge planning was 38 minutes.) Diagnosis - Discharge Diagnosis (1) Fracture of femoral neck, right Status: Resolved Discharge Plan - Discharge Data Condition at Discharge: Stable Discharge Diet: advance to your usual diet Activity: as per physical therapy Hygiene: no restrictions Contact your physician if you experience:: fever over 101, Difficulty voiding, pain uncontrolled by pain medications DS: Provider Expected date of discharge: 12/18/16
[2016-12-18 11:19] VITALS: BP 155/70
== END 2016-12-18 14:00 | disposition swing bed (61) | DRG 470 ==
LOC: EDBD → EDUNIT# → N.ED 13:00 → N.EDINP 14:26 → SUATTDRO 14:26 → N.3E 15:59
PROVIDERS: ADMIT Internal Medicine; ATTEND Family Medicine